=== PATIENT | male | born 1990 | race Caucasian/White ===

== ENCOUNTER 2021-05-04 07:27 | Day surgery (SDC) | payer BC ==
[~2021-05-04] VITALS: Ht 160 cm; Wt 82.0 kg
--- NOTE | 2021-05-04 07:45 | NUR ---
31 Year old male admitted to [place] [facility] with a steady gait and no use of assistive devices. Procedure verified and consent signed. First and last name + verified. Medications and HX reviewed. Allergies reviewed. Physical assessment completed, see physical assessment in [facility] short form. IV started in R wrist on first attempt with 22G. IVF infusing without difficulty. Warm blanket provided. Non-slip socks are on. Call [place] is within reach. Patient desires to keep contacts in and states he "naps with them in every day"
[2021-05-04] MEDS ORDERED: PRILOSEC10 MG PO (07:58)
[2021-05-04 08:21] VITALS: BP 117/76; PULSE 73; TEMP 98.1
[2021-05-04 09:38] VITALS: BP 124/79; PULSE 73
--- NOTE | 2021-05-04 09:38 | NUR ---
Patient returns to [facility] per cart and transfers from cart to recliner with one person assist. IV fluids infusing and patient given water to drink. Temp 97.7. Call light in reach. Father in the room.
[2021-05-04 09:53] VITALS: BP 125/88; PULSE 67
--- NOTE | 2021-05-04 09:53 | NUR ---
Sipping on water and denies difficulty swallowing.
[2021-05-04 10:08] VITALS: BP 117/74; PULSE 67
--- NOTE | 2021-05-04 10:08 | NUR ---
Dr. Wills here and talks with the patient. All questions answered.
--- NOTE | 2021-05-04 10:20 | NUR ---
IV discontinued and site is free of redness or swelling. Dresses self. Given dismissal instructions and voices understanding of follow and home cares. Taken to the front door per wheelchair and assisted into vehilce with instructions in hand.
[2021-05-04 10:38] VITALS: BP 124/79; PULSE 70
== END 2021-05-04 10:20 | disposition home or self-care (01) ==
LOC: SDCO 07:27
DX: K21.9 Gastro-esophageal reflux disease without esophagitis (principal); Z79.899 Other long term (current) drug therapy
CPT/HCPCS: J7120